=== PATIENT | male | born 1980 | race Hispanic/Latino ===

== ENCOUNTER 2025-08-11 09:56 | Emergency (ER) | payer OTHER ==
[~2025-08-11] VITALS: Ht 177.8 cm; Wt 69.8 kg
[2025-08-11] MEDS ORDERED: HYDROmorphone HCL 1 MG/ML SYR IV ONE (10:15)
[2025-08-11] MEDS ORDERED: SODIUM CHLORIDE 0.9% 1,000 ML IV PRN (10:15)
[2025-08-11] MEDS ORDERED: BENADRYL ALLERG25 MG PO (10:19)
[2025-08-11] MEDS ORDERED: PRILOSEC10 M1 PO (10:19)
[2025-08-11] MEDS ORDERED: fentaNYL citrate 100 MCG/2 ML VIAL IV PRN (10:30)
[2025-08-11] MEDS ORDERED: HYDROCODON-ACE1 EA10 PO (11:46)
[2025-08-11] MEDS ORDERED: ONDANSETRON ODT4 MG PO (11:46)
[2025-08-11] MEDS ORDERED: HYDROCODONE/ACETA 5/325 TAB PO ONE (12:00)
[2025-08-11] MEDS ORDERED: ONDANSETRON 4 MG TAB ODT SL ONE (12:00)
[2025-08-11 12:26] VITALS: BP 117/100
== END 2025-08-11 12:12 | disposition home or self-care (01) ==
LOC: ED 09:56
DX: S52.502A Unspecified fracture of the lower end of left radius, initial encounter for closed fracture (principal); S52.602A Unspecified fracture of lower end of left ulna, initial encounter for closed fracture; W11.XXXA Fall on and from ladder, initial encounter
CPT/HCPCS: 25605; 73110; 94799; 96374; 96375; 99152; 99153; 99283-25; A9270; J1171; J2405; J2704; J7030